=== PATIENT | male | born 1985 | race African-American/Black ===

== ENCOUNTER 2019-08-11 10:30 | Emergency (ER) | payer OTHER ==
[2019-08-11] MEDS ORDERED: Albuterol/Ipratropium NEB.SOL* Albuterol 2.5 MG/Ipratropium 0.5 MG 3 ML INH ONE (11:55)
--- NOTE | 2019-08-11 12:01 | UC ---
Respiratory Complaint HPI - HPI Summary HPI Summary: Ill for one week with occasional productive cough of greenish sputum. Some pain with coughing, described as "lung pain". Pt thinks he might have pneumonia. He is a smoker, but no fever or chills. No heart history and no hx of DVT or PE. Mild pain on deep inspiration. Pt states mildly SOB just with exertion. Sitting comfortably on exam table. - History of Current Complaint Stated Complaint: CHEST CONGESTION Time Seen by Provider: 08/11/19 11:52 Hx Obtained From: Patient Onset/Duration: Gradual Onset Timing: Intermittent Episodes Severity Initially: Mild Severity Currently: Mild Character: Cough: Productive - green sputum Aggravating Factors: Exertion, Deep Breaths Alleviating Factors: Nothing Associated Signs And Symptoms: Positive: URI, Nasal Congestion - Allergies/Home Medications Allergies/Adverse Reactions: Allergies Allergy/AdvReac Type Severity Reaction Status Date / Time No Known Allergies Allergy Verified 08/11/19 12:19 PMH/Surg Hx/FS Hx/Imm Hx Previously Healthy: Yes - Family History Known Family History: Positive: Non-Contributory - Social History Lives: With Family Review of Systems All Other Systems Reviewed And Are Negative: Yes ENT: Positive: Nasal Discharge, Sinus Congestion Respiratory: Positive: Shortness Of Breath - Feels mildly SOB with exertion and with deep breaths, Cough Is Patient Immunocompromised?: No Physical Exam Triage Information Reviewed: Yes Appearance: Well-Appearing, No Pain Distress, Well-Nourished, Other: - Sitting comfortably on exam table in no distress, talks easily Vital Signs Reviewed: Yes Eyes: Positive: Conjunctiva Clear ENT: Positive: Pharynx normal, TMs normal, Uvula midline. Negative: Sinus tenderness Neck: Positive: Supple, Nontender, No Lymphadenopathy Respiratory: Positive: Lungs clear, Normal breath sounds, No respiratory distress, No accessory muscle use Cardiovascular: Positive: RRR, No Murmur, Pulses Normal, Brisk Capillary Refill Musculoskeletal Exam: Normal Neurological Exam: Normal Psychological Exam: Normal Skin Exam: Normal Respiratory Course/Dx - Course Course Of Treatment: Duo neb treatment: Pt isn't sure whether treatment helped or not. His lungs are clear with much better air movement after the treatment. Chest X-ray:TECHNIQUE: Dual-energy PA and lateral views of the chest were obtained. FINDINGS: The heart is within normal limits in size. Mediastinal and hilar contours appear within normal limits. The lungs are underinflated and grossly clear. No pleural effusion is seen. IMPRESSION: LOW LUNG VOLUMES, NO EVIDENCE FOR ACUTE FINDING. Pt PERC's out at Zero for PE. 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 He continues to have the pain on inspiration. I gave him a RX for an albuterol inhaler, but I want him to go to the ER if he has any worsening symptoms and if he continues to have the pain on deep inspiration with the feeling of being short of breath. Pt is sitting on the exam table and talks easily without any difficulty. He is in no distress. - Differential Dx/Diagnosis Provider Diagnosis: URI (upper respiratory infection) Discharge ED - Sign-Out/Discharge Documenting (check all that apply): Patient Departure All imaging exams completed and their final reports reviewed: Yes - Discharge Plan Condition: Good Disposition: HOME Prescriptions: Albuterol HFA INHALER* [Ventolin HFA Inhaler*] 2 puff INH Q4H PRN 5 Days #1 mdi PRN Reason: Cough Patient Education Materials: Upper Respiratory Infection (ED) Referrals: [facility] [Outside] No Primary Care Phys,NOPCP [Primary Care Provider] - Additional Instructions: Increase fluids. If you develop worsening symptoms, you are to go to the ER for further evaluation and treatment. - Billing Disposition and Condition Condition: GOOD Disposition: Home
[2019-08-11 12:19] VITALS: BP 142/98
== END 2019-08-11 13:13 | disposition home or self-care (01) ==
LOC: UCEAST 10:30
DX: J06.9 Acute upper respiratory infection, unspecified (principal); F17.200 Nicotine dependence, unspecified, uncomplicated
CPT/HCPCS: 71046; 99202; A9270-GY; G0463